=== PATIENT | female | born 1960 | race Caucasian/White ===

== ENCOUNTER 2022-11-26 12:32 | Emergency (ER) | payer BC ==
[~2022-11-26] VITALS: Ht 170.2 cm; Wt 54.4 kg
--- NOTE | 2022-11-26 12:45 | NUR ---
PT IN BED STATES THAT SHE HAS BEEN FEELING VERY DEPRESSED AND HOPELESS LATELY. NEW MED REGIMENT IS NOT EFFECTIVE. PT DEINES SI AND CURRENTLY IS RECEIVING CHEMO FOR BREAST CANCER. Addendum: 11/26/22 at 1437 by SHARON VITAL SIGNS WNL, BREATHING IS UNLABORED 99% ON ROOM AIR.
[2022-11-26 13:36] LABS: BASOPHILS % (AUTO) 0.7 % (0.0-2.0); EOSINOPHILS % (AUTO) 2.3 % (0.0-6.0); HEMATOCRIT 28 % (33-45); HEMOGLOBIN 9.4 g/dL (11.5-14.8); LYMPHOCYTES # (AUTO) 0.8 K/uL (0.8-4.8); LYMPHOCYTES % (AUTO) 19.7 % (20.0-44.0); MEAN CORPUSCULAR HGB CONC 33 g/dl (31.0-36.0); MEAN CORPUSCULAR VOLUME 100 fL (82-100); MONOCYTES # (AUTO) 0.2 K/uL (0.1-1.30); MONOCYTES % (AUTO) 5.2 % (2.0-12.0); NEUTROPHILS # (AUTO) 2.9 K/uL (1.8-8.9); NEUTROPHILS % (AUTO) 72.1 % (43.0-81.0); PLATELET COUNT (AUTO) 214 K/uL (150-450); RED BLOOD CELL COUNT(AUTO) 2.84 MIL/uL (4.0-5.2); WHITE BLOOD COUNT (AUTO) 4.1 K/uL (4.3-11.0)
[2022-11-26 13:47] LABS: CALCIUM, SERUM 9.2 mg/dL (8.5-10.1); CARBON DIOXIDE 29 mmol/L (21-32); CHLORIDE 104 mmol/L (98-107); GLUCOSE 110 mg/dL (74-106); POTASSIUM 3.8 mmol/L (3.5-5.1); SODIUM SERUM 139 mmol/L (136-145); UREA NITROGEN, BLOOD 24 mg/dL (7-18)
[2022-11-26 13:53] LABS: ALANINE AMINOTRANSFERASE 30 U/L (12-78); ALBUMIN 3.5 g/dL (3.4-5.0); ALKALINE PHOSPHATASE 81 U/L (46-116); ASPARTATE AMINOTRANSFERASE 20 U/L (15-37); BILIRUBIN,DIRECT 0.2 mg/dL (0.0-0.2); BILIRUBIN,TOTAL 0.3 mg/dL (0.2-1.0)
[2022-11-26 13:54] LABS: ACETAMINOPHEN < 10 ug/ml (10-30); ALCOHOL, BLOOD < 3 mg/dL (0-0); TOTAL PROTEIN, SERUM 6.1 g/dL (6.4-8.2)
--- NOTE | 2022-11-26 14:35 | NUR ---
URINE AND COVID SENT TO LAB
[2022-11-26 15:30] LABS: BILIRUBIN,URINE NEGATIVE (NEGATIVE); COLOR,URINE YELLOW (YELLOW); LEUKOCYTE ESTERASE ,URINE 1+ (NEGATIVE); NITRITE, URINE NEGATIVE (NEGATIVE); PROTEIN,URINE NEGATIVE (NEGATIVE); UGLUCOSE NEGATIVE (NEGATIVE); UROBILINOGEN,URINE 0.2 EU/dL (0.2)
--- NOTE | 2022-11-26 15:37 | NUR ---
[employer] AT BED SIDE
[2022-11-26 15:56] LABS: RBC,URINE 0-2 /HPF (0-2)
[2022-11-26 15:57] LABS: BACTERIA,URINE 1+ /HPF (None Seen); SQUAMOUS EPITHELIAL CELL,UR 0-2 /HPF (None Seen)
--- NOTE | 2022-11-26 16:16 | NUR ---
GURVINDER Note: GURVINDER requested a consult for pt with depression. GURVINDER met with patient and pt presented to be alert and oriented x3. Pt was aware of where she was. GURVINDER assessed pt with brother in law present and sister Rosalba ([phone]) on the phone. Pt was brought to the ER due to depression and not taking her medications. Pt shared that she has been diagnosed with cancer and has been on chemo. Pt expressed that she was from a shelter (clinical director Kassi [phone]). Brother in law and sister were concerned of pt losing weight. GURVINDER educated family that pt has had chemo and this could decrease her appetite. GURVINDER encouraged pt to see her oncologist and psychiatrist to monitor her symptoms. She stated that her psychiatrist is Dr. Martines. Pt on antidepressants and antipsychotic (Risperdal and Remoron). Pt was recently in a psych unit in [facility] and was discharged. Family was insisiting on pt to go to a psych unit but pt stated that she needs a break and does not want to go. GURVINDER assessed for suicidal or homicidal ideation, pt denied. GURVINDER assessed for visual/auditory hallucinations, pt denied. Socorro Xiong, spoke with pt and family and pt does not meet criteria to be placed on a hold. Socorro Xiong and GURVINDER educated family. GURVINDER spoke with nurse and notified this information and for the doctor to review her labs. GURVINDER requested home health from nurse. DC PLAN: Pt wants to return back home located at [address] [place] [id number]; ([phone]).
[2022-11-26] MEDS ORDERED: PHEN28OI9 RC (17:52)
[2022-11-26] MEDS ORDERED: CEPH500C2 PO (17:52)
[2022-11-26 19:13] VITALS: BP 130/70
== END 2022-11-26 19:14 | disposition home or self-care (01) ==
LOC: ER 12:37
DX: F32.A Depression, unspecified (principal); D64.9 Anemia, unspecified; N39.0 Urinary tract infection, site not specified; F41.9 Anxiety disorder, unspecified; Z20.822 Contact with and (suspected) exposure to COVID-19; Z85.3 Personal history of malignant neoplasm of breast
CPT/HCPCS: 99283; 85025; 80048; 87086 ×2; 80076; 81001; 36415; 87426; 80143; 80320; 80307; C9803; G0480